=== PATIENT | male | born 1985 | race American Indian/Alaskan Native ===

== ENCOUNTER 2022-02-05 13:04 | Emergency (ER) | payer SELFPAY ==
[2022-02-05 15:00] LABS: Basophils % (Auto) 0.4 % (0.0-1.8); Eosinophils % (Auto) 0.5 % (0.0-4.3); Hemoglobin 14.2 gm/dl (11.8-15.2); Lymphocytes # (Auto) 0.8 K/mm3 (1.2-5.4); Lymphocytes % (Auto) 12.4 % (13.4-35.0); Mean Corpuscular HGB Conc 32 % (32-34); Mean Corpuscular Volume 94 fl (84-94); Monocytes # (Auto) 0.6 K/mm3 (0.0-0.8); Monocytes % (Auto) 9.1 % (0.0-7.3); Platelet Count 241 K/mm3 (140-440); Red Cell Distribution Width 15.3 % (13.2-15.2)
--- NOTE | 2022-02-05 15:07 | Emergency Department Report ---
ED Psych HPI - General Chief Complaint: Psych Stated Complaint: IN PAIN Time Seen by Provider: 02/05/22 14:24 Source: patient Mode of arrival: Ambulatory - History of Present Illness Initial Comments: Patient is 36 years old male with history of schizophrenia. Patient brought to the emergency room via EMS for mental health evaluation. Patient stated that he is hearing voices asking him to hurt himself. Patient stated that he does not have a plan. Patient also saying that he feels like the world is gone and by itself and he might not need to do that. He denied any homicidal ideation. No visual hallucination. - Related Data Previous Rx's Medication Instructions Recorded Last Taken Type Insulin NPH/Regular [Novolin 70/30] 12 unit SUB-Q TID #1 vial 02/06/22 Unknown Rx Syringe-Needle,Insulin,0.5 ml 1 each MC TID #1 box 02/06/22 Unknown Rx [Insulin Syringe/Needle 0.5 ML] Allergies Allergy/AdvReac Type Severity Reaction Status Date / Time No Known Allergies Allergy Verified 02/05/22 16:34 ED Review of Systems ROS: Stated complaint: IN PAIN Other details as noted in HPI Comment: All other systems reviewed and negative Constitutional: denies: chills, fever Respiratory: denies: cough, shortness of breath, SOB with exertion, SOB at rest Cardiovascular: denies: chest pain, palpitations Gastrointestinal: denies: abdominal pain, nausea, vomiting Neurological: denies: headache, weakness, numbness, paresthesias, confusion Psychiatric: depression, auditory hallucinations, suicidal thoughts. denies: visual hallucinations, homicidal thoughts ED Past Medical Hx - Past Medical History Additional medical history: Depression, bipolar - Surgical History Past Surgical History?: No - Social History Smoking Status: Never Smoker - Medications Home Medications: Home Medications Medication Instructions Recorded Confirmed Last Taken Type Insulin NPH/Regular [Novolin 70/30] 12 unit SUB-Q TID #1 vial 02/06/22 Unknown Rx Syringe-Needle,Insulin,0.5 ml 1 each MC TID #1 box 02/06/22 Unknown Rx [Insulin Syringe/Needle 0.5 ML] ED Physical Exam - General Limitations: No Limitations General appearance: alert, in no apparent distress - Head Head exam: Present: atraumatic, normocephalic, normal inspection - Eye Eye exam: Present: normal appearance - ENT ENT exam: Present: normal exam, normal orophraynx, mucous membranes moist - Neck Neck exam: Present: normal inspection, full ROM. Absent: tenderness, meni ngismus - Respiratory Respiratory exam: Present: normal lung sounds bilaterally - Cardiovascular Cardiovascular Exam: Present: regular rate, normal rhythm, normal heart sounds - GI/Abdominal GI/Abdominal exam: Present: soft, normal bowel sounds. Absent: distended, tenderness, guarding, rebound, rigid, organomegaly, mass, bruit, pulsatile mass, hernia - Extremities Exam Extremities exam: Present: normal inspection, full ROM, normal capillary refill. Absent: tenderness, pedal edema, joint swelling, calf tenderness - Back Exam Back exam: Present: normal inspection, full ROM. Absent: CVA tenderness (R), CVA tenderness (L) - Neurological Exam Neurological exam: Present: alert, oriented X3, CN II-XII intact, normal gait, reflexes normal - Psychiatric Psychiatric exam: Present: suicidal ideation. Absent: homicidal ideation - Skin Skin exam: Present: warm, intact, normal color ED Course Vital Signs 02/05/22 02/05/22 02/05/22 13:51 15:02 18:36 Temperature 98.2 F Pulse Rate 79 78 Respiratory 12 15 Rate Blood Pressure 128/68 Blood Pressure 129/77 [Right] O2 Sat by Pulse 98 99 99 Oximetry 02/05/22 02/06/22 02/06/22 19:45 00:15 02:05 Temperature Pulse Rate 77 Respiratory 18 15 15 Rate Blood Pressure Blood Pressure 131/71 [Right] O2 Sat by Pulse 100 Oximetry 02/06/22 02/06/22 02/06/22 06:14 06:15 08:44 Temperature Pulse Rate 80 Respiratory 15 15 18 Rate Blood Pressure Blood Pressure 138/80 [Right] O2 Sat by Pulse 100 Oximetry 02/06/22 18:09 Temperature Pulse Rate 78 Respiratory 18 Rate Blood Pressure Blood Pressure 140/81 [Right] O2 Sat by Pulse 98 Oximetry ED Medical Decision Making - Lab Data Result diagrams: 02/05/22 14:43 02/06/22 21:12 - Medical Decision Making Patient is 36 years old male with history of schizophrenia. Patient brought to the emergency room via EMS for mental health evaluation. Patient stated that he is hearing voices asking him to hurt himself. Patient stated that he does not have a plan. Patient also saying that he feels like the world is gone and by itself and he might not need to do that. He denied any homicidal ideation. No visual hallucination. Labs reviewed and patient found to have a blood glucose of 870. Patient received 20 units of insulin IV and started on 2 L of normal saline. Blood pressure improved to 350. I added another 6 units. I started patient on sliding scale. Critical Care Time: Yes Critical care attestation.: If time is entered above; I have spent that time in minutes in the direct care of this critically ill patient, excluding procedure time. ED Disposition Clinical Impression: Acute hyperglycemia, Suicidal ideation, Diabetes mellitus, new onset DKA (diabetic ketoacidosis) Qualifiers: Diabetes mellitus type: type 1 Diabetes mellitus complication detail: without coma Qualified Code(s): E10.10 - Type 1 diabetes mellitus with ketoacidosis without coma Disposition: 09 ADMITTED INPATIENT Is pt being admited?: No Condition: Stable Instructions: Type 2 Diabetes Mellitus, Self Care, Adult, [id number], Blood Glucose Monitoring, Adult, Preventing Diabetic Ketoacidosis, Diabetic Ketoacidosis (ED), Diabetes Mellitus Type 2 in Adults (ED) Additional Instructions: Professional and Agency Contacts To help Resolve Crises(25/03) [place] Crisis Line: Suicide Prevention Line: Crisis Text Line: Text START to [phone] Emergency: 911 Outpatient COMMUNITY Behavioral Health Resources: [place]: [facility] [address] [place], [place] [address] [facility] [address] [place] [address] [facility] - [address] [place] [address] Saturday thru Saturday - 8am - 5pm [facility] Address: [address], [place] [address] [facility] Address: [address] [place] [address] Saturday thru Saturday- 7am-2pm [facility] Address: [address] [place] [address] Saturday thru Saturday: 8:30AM-5PM In case of an emergency, please contact the following numbers: [place] Crisis and Access Line: Number: Crisis Text Line: (Text START) Number: 790078 Suicide Prevention Line: Number: Emergency Number: 911 SUBSTANCE ABUSE PROGRAMS: [facility]: Location: [place], [place] [employer] [facility] Address: [address] [place] [address] [facility]: Address: [address] [facility] [place] [address] [facility]: Address: [address] [place] [address] [facility] Community: Address: [address] [place] [address] [facility] Address: [address] [place] [address]. Please contact above numbers to attempt placement into free based program. Medicaid Programs: [facility]: Address: [address] [place] [address] [facility]: Address: [address] [place] [address] Prescriptions: Syringe-Needle,Insulin,0.5 ml [Insulin Syringe/Needle 0.5 ML] 1 each MC TID #1 box Insulin NPH/Regular [Novolin 70/30] 12 unit SUB-Q TID #1 vial Referrals: PRIMARY CARE, [Primary Care Provider] - 3-5 Days
[2022-02-05 15:18] LABS: BUN/Creatinine Ratio 9; Blood Urea Nitrogen 8 mg/dL (9-20); Calcium 8.4 mg/dL (8.4-10.2); Hemolysis Index 21
[2022-02-05] MEDS ORDERED: SODIUM CHLORIDE 0.9% 1000 ML 1,000 ML IV ONE ×2 (15:31→17:41)
[2022-02-05] MEDS ORDERED: INSULIN REGULAR, HUMAN 100 UNITS/1 ML IV NR (15:32)
[2022-02-05] MEDS ORDERED: INSULIN REGULAR, HUMAN 100 UNITS/1 ML IV ONE ×2 (18:21→20:26)
[2022-02-05 20:18] LABS: BUN/Creatinine Ratio 10; Blood Urea Nitrogen 8 mg/dL (9-20); Calcium 8.1 mg/dL (8.4-10.2); Hemolysis Index 14
[2022-02-05] MEDS ORDERED: DEXTROSE 50% IN WATER (25GM) 50 ML SYRINGE IV PRN (20:25)
[2022-02-05] MEDS: INSULIN REGULAR, HUMAN 100 UNITS/1 ML SUB-Q SCH (22:43)
[2022-02-06] MEDS ORDERED: SODIUM BICARB 8.4% 50 MEQ/50 ML SYRINGE IV NR ×2 (11:57→20:26)
[2022-02-06] MEDS ORDERED: SODIUM CHLORIDE 0.9% 1000 ML 1,000 ML IV ONE ×4 (11:57→16:13)
[2022-02-06] MEDS: INSULIN REGULAR, HUMAN 100 UNITS/1 ML SUB-Q SCH (11:58)
[2022-02-06] MEDS ORDERED: DEXTROSE 50% IN WATER (25GM) 50 ML SYRINGE IV PRN (12:00)
[2022-02-06 13:00] LABS: Bilirubin,Urine NEG (Negative); Blood,Urine NEG (Negative); Color,Urine Straw (Yellow); Mucus,Urine FEW /HPF; Protein,Urine <15 mg/dL mg/dL (Negative); Urobilinogen,Urine < 2.0 mg/dL (<2.0); WBC,Urine < 1.0 /HPF (0.0-6.0)
[2022-02-06 13:11] LABS: Amphetamine Screen,Urine Negative; Benzodiazepines Screen,Urine Negative; Cocaine Screen,Urine Negative; Methadone Screen,Urine Negative; Opiate Screen,Urine Negative
[2022-02-06 13:25] LABS: Cannabinoid Screen,Urine Positive
--- NOTE | 2022-02-06 15:42 | Emergency Department Report ---
Blank Doc - Documentation Documentation: 36-year-old male in the ED since yesterday awaiting psychiatric evaluation. P gayatri apparently had new onset hyperglycemia with new diagnosis of diabetes and was treated with insulin and IV fluids and medically cleared. Patient has received psychiatric clearance with discontinuation of 1013 from mental health providers. Upon my review patient is initial labs show hyperglycemia with anion gap and urine with ketones suggestive of possible DKA. Patient has received several doses of insulin since yesterday including 6 units prior to my bedside evaluation blood glucose in the 300s. I interviewed patient and he states he is feeling better than yesterday and does endorse recent increased thirst and urinary frequency. Repeat BMP and venous pH ordered to rule out DKA and to reassess anion gap and electrolyte status. Vph shows a significant acidosis. + for DKA. Pt will nee ICU admission for DKA treatment case d/w Dr Luo case d/w Dr Arriaza ICU DKA protocol initiated including insulin drip. Critical care time 35 minutes
[2022-02-06] MEDS ORDERED: INSULIN NPH/REGULAR 70/30 INJ SUB-Q SCH (16:30)
[2022-02-06 16:56] LABS: Blood Urea Nitrogen 7 mg/dL (9-20); Calcium 8.6 mg/dL (8.4-10.2); Hemolysis Index 3
[2022-02-06 16:58] LABS: BUN/Creatinine Ratio 10
[2022-02-06] MEDS ORDERED: INSULIN REGULAR, HUMAN 100 UNITS in SODIUM CHLORIDE 0.9% 99 ML IV SCH (17:00)
[2022-02-06] MEDS ORDERED: POTASSIUM CHLORIDE 10 MEQ 10 MEQ/100 ML BAG IV SCH ×2 (17:00)
[2022-02-06] MEDS ORDERED: D5W/0.45% NACL/KCL 20 MEQ 20 MEQ/1,000 ML BAG IV SCH (17:00)
[2022-02-06] MEDS ORDERED: SODIUM CHLORIDE 0.9% 1000 ML 3,000 ML IV ONE (17:00)
[2022-02-06 17:25] LABS: Blood Urea Nitrogen 7 mg/dL (9-20); Calcium 8.5 mg/dL (8.4-10.2); Hemolysis Index 6
[2022-02-06 17:26] LABS: BUN/Creatinine Ratio 12
[2022-02-06 18:10] VITALS: BP 140/81
--- NOTE | 2022-02-06 18:51 | Consultation ---
History of Present Illness - Reason for Consult Consult date: 02/06/22 Reason for consult: SI - History of Present Psychiatric Illness The patient was seen today. He is calm, and cooperative. He states he came to the hospital because he was urinating a lot. The patient says he found his blood sugar was high. I ask the patient was he still hearing the voices, hes says "no, I'm not hearing voices." The patient says "I think my sugar had me crazy." He then laughs. The patient denies SI/HI or hallucinations of any kind. He says he's starting to feel better, but states "now I'm just hungry." He then laughs. REVIEW OF SYSTEMS Constitutional: Negative for weight loss ENT: Negative for stridor Respiratory: Negative for cough or hemoptysis All other systems reviewed and are negative MENTAL STATUS EXAMINATION General Appearance and Behavior: Age appropriate, wearing appropriate clothes, cooperative, polite with questioning, good eye contact Cooperation: cooperative Psychomotor Behavior: normal Mood: calm Affect and affective range: congruent with stated mood Thought Process: Goal directed Thought Content: Reality oriented Speech: Normal volume, Regular rate and rhythm Suicidal Ideation: Denies Homicidal Ideation: Denies Hallucination: Denies Delusions: None elicited Impulse Control: Limited Insight and Judgment: Limited Memory: Intact Attention:attentive Orientation: Alert and oriented Assessment Hx of schizophrenia Delirium Recommendations: Continue home medications MEDICAL: Per primary team FACILITIES DIRECTOR: Defer to primary DISPOSITION: Per primary team. Acute inpatient psychiatric hospitalization is not recommended at this time. LEGAL STATUS: Voluntary FOLLOW-UP: Will sign off Please contact with any questions and/or concerns. Case staffed with Dr. Conrad Medications and Allergies Allergies Allergy/AdvReac Type Severity Reaction Status Date / Time No Known Allergies Allergy Verified 02/05/22 16:34 Active Meds: Active Medications Dextrose (Dextrose 50% In Water (25gm) 50 Ml Syringe) 50 ml IV Q30MIN PRN; Protocol PRN Reason: Hypoglycemia Sodium Chloride (Nacl 0.9% 1000 Ml) 1,000 mls @ 125 mls/hr IV ONCE ONE Stop: 02/06/22 19:56 Last Admin: 02/06/22 17:52 Dose: Not Given Insulin Human Regular 100 (units/ Sodium Chloride) 100 mls @ 1 mls/hr IV TITR PIPER; Protocol Last Titration: 02/06/22 18:22 Dose: 5 units/hr, 5 mls/hr Potassium Chloride/Dextrose/Sod Cl (D5w/0.45% Nacl/Kcl 20 Meq) 20 meq in 1,000 mls @ 125 mls/hr IV DIRECT PIPER Potassium Chloride (Kcl 10meq/100ml) 10 meq in 100 mls @ 100 mls/hr IV Q1H PIPER Stop: 02/06/22 20:59 Potassium Chloride (Kcl 10meq/100ml) 10 meq in 100 mls @ 100 mls/hr IV Q1H PIPER Stop: 02/06/22 22:59 Sodium Chloride (Nacl 0.9% 1000 Ml) 3,000 mls @ 999 mls/hr IV BOLUS ONE Stop: 02/06/22 20:00 Mental Status Exam - Vital signs Last Vital Signs Temp 98.2 F 02/05/22 13:51 Pulse 78 02/06/22 18:09 Resp 18 02/06/22 18:09 BP 140/81 02/06/22 18:09 Pulse Ox 98 02/06/22 18:09 Results Result Diagrams: 02/05/22 14:43 02/06/22 16:30 Abnormal lab results 02/05/22 02/06/22 02/06/22 Range/Units 19:43 15:32 15:32 VBG pH 7.109 L* (7.320-7.420) Sodium 132 L D 130 L (137-145) mmol/L Chloride (98-107) mmol/L Carbon Dioxide 14 L 18 L (22-30) mmol/L BUN 8 L 7 L (9-20) mg/dL Creatinine 0.7 L (0.8-1.3) mg/dL Glucose 351 H 284 H (75-100) mg/dL Calcium 8.1 L (8.4-10.2) mg/dL 02/06/22 Range/Units 16:30 VBG pH (7.320-7.420) Sodium 132 L (137-145) mmol/L Chloride 96.6 L (98-107) mmol/L Carbon Dioxide 16 L (22-30) mmol/L BUN 7 L (9-20) mg/dL Creatinine 0.6 L (0.8-1.3) mg/dL Glucose 281 H (75-100) mg/dL Calcium (8.4-10.2) mg/dL All other labs normal.
[2022-02-06 19:57] LABS: Blood Urea Nitrogen 6 mg/dL (9-20); Calcium 8.6 mg/dL (8.4-10.2); Hemolysis Index 9
[2022-02-06 20:01] LABS: BUN/Creatinine Ratio 10
--- NOTE | 2022-02-06 20:27 | History and Physical Report ---
History of Present Illness Chief complaint: They told them a blood sugar was high History of present illness: 36 YO male with Obesity, Schizophrenia, Bipolar Disorder, MDD presents ED for evaluation. Patient reports "they told me my blood sugar was high". Patient states that he has experienced polydipsia polyuria and polyphagia over the past several days. Patient transported to [facility] via private vehicle for further care and evaluation of "hearing voices". Patient placed on 1013. Patient seen and evaluated by mental health team. Patient found to not require inpatient psychiatric care and cleared from by psychiatry team. Patient seen and evaluated in the emergency department. All lab and imaging studies reviewed. Patient found to have new onset diabetes mellitus complicated by early DKA. Patient treated with IV fluid resuscitation therapy with normalization of anion gap. Patient medically optimized and back to usual state of health. Patient initially admitted to ICU but subsequently downgraded. Patient denies fever, chills, chest pain, palpitation, productive cough, skin rash, recent contact, known exposure to COVID-19. No prior admission for review. Advance care planning conducted in ED. Past History Past Medical History: other (See HPI\\) Past Surgical History: No surgical history, Other (Reviewed) Social history: single. denies: smoking, alcohol abuse, prescription drug abuse Family history: diabetes, hypertension Medications and Allergies Allergies Allergy/AdvReac Type Severity Reaction Status Date / Time No Known Allergies Allergy Verified 02/05/22 16:34 Home Medications Medication Instructions Recorded Confirmed Last Taken Type Insulin NPH/Regular [Novolin 70/30] 12 unit SUB-Q TID #1 vial 02/06/22 Unknown Rx Syringe-Needle,Insulin,0.5 ml 1 each MC TID #1 box 02/06/22 Unknown Rx [Insulin Syringe/Needle 0.5 ML] Active Meds: Active Medications Dextrose (Dextrose 50% In Water (25gm) 50 Ml Syringe) 50 ml IV Q30MIN PRN; Protocol PRN Reason: Hypoglycemia Insulin Human Regular 100 (units/ Sodium Chloride) 100 mls @ 1 mls/hr IV TITR PIPER; Protocol Last Titration: 02/06/22 18:22 Dose: 5 units/hr, 5 mls/hr Potassium Chloride/Dextrose/Sod Cl (D5w/0.45% Nacl/Kcl 20 Meq) 20 meq in 1,000 mls @ 125 mls/hr IV DIRECT PIPER Potassium Chloride (Kcl 10meq/100ml) 10 meq in 100 mls @ 100 mls/hr IV Q1H PIPER Stop: 02/06/22 20:59 Potassium Chloride (Kcl 10meq/100ml) 10 meq in 100 mls @ 100 mls/hr IV Q1H PIPER Stop: 02/06/22 22:59 Sodium Bicarbonate (Sodium Bicarb 8.4% 50 Meq/50 Ml Syringe) 50 meq IV ONCE ONE Stop: 02/06/22 20:27 Review of Systems Constitutional: no weight loss, no weight gain, no chills, no sweats Ears, nose, mouth and throat: no ear pain, no ear discharge, no tinnitis, no nasal congestion, no nasal discharge, no sinus pressure, no sinus pain Cardiovascular: no chest pain, no orthopnea, no palpitations, no rapid/irregular heart beat, no syncope Respiratory: no cough, no cough with sputum, no hemoptysis, no shortness of breath, no dyspnea on exertion Gastrointestinal: no nausea, no vomiting, no diarrhea, no coffee ground emesis Genitourinary Male: no hematuria, no flank pain, no discharge, no urinary hesitancy, no nocturia, no incontinence Rectal: no pain, no incontinence, no bleeding Musculoskeletal: no neck stiffness, no neck pain, no shooting arm pain, no arm numbness/tingling, no shooting leg pain, no leg numbness/tingling Integumentary: no rash, no pruritis, no redness, no wounds, no jaundice Neurological: no head injury, no paralysis, no weakness, no numbness, no seizures, no tremors Psychiatric: no anxiety, no memory loss, no sleep disturbances Endocrine: polyphagia, excessive thirst, polydipsia, polyuria, high blood sugars, no cold intolerance, no heat intolerance Hematologic/Lymphatic: no easy bruising, no easy bleeding Allergic/Immunologic: no urticaria, no allergic rhinitis, no wheezing Exam - Constitutional Vitals: Temp Pulse Resp BP Pulse Ox 98.2 F 78 18 140/81 98 02/05/22 13:51 02/06/22 18:09 02/06/22 18:09 02/06/22 18:09 02/06/22 18:09 General appearance: Present: mild distress - EENT Eyes: Present: PERRL ENT: hearing intact, clear oral mucosa - Neck Neck: Present: supple, normal ROM - Respiratory Respiratory effort: normal Respiratory: bilateral: CTA - Cardiovascular Heart Sounds: Present: S1 & S2. Absent: rub, click - Extremities Extremities: pulses symmetrical, No edema Peripheral Pulses: within normal limits - Abdominal General gastrointestinal: Present: soft, non-tender, non-distended, normal bowel sounds Male genitourinary: Present: normal - Integumentary Integumentary: Present: clear, warm, dry - Musculoskeletal Musculoskeletal: gait normal, strength equal bilaterally - Psychiatric Psychiatric: appropriate mood/affect, intact judgment & insight - Neurologic Neurologic: CNII-XII intact, moves all extremities Results - Labs CBC & Chem 7: 02/05/22 14:43 02/06/22 19:30 Labs: Abnormal lab results 02/06/22 02/06/22 02/06/22 Range/Units 15:32 15:32 16:30 VBG pH 7.109 L* (7.320-7.420) Sodium 130 L 132 L (137-145) mmol/L Potassium (3.6-5.0) mmol/L Chloride 96.6 L (98-107) mmol/L Carbon Dioxide 18 L 16 L (22-30) mmol/L BUN 7 L 7 L (9-20) mg/dL Creatinine 0.7 L 0.6 L (0.8-1.3) mg/dL Glucose 284 H 281 H (75-100) mg/dL 02/06/22 Range/Units 19:30 VBG pH (7.320-7.420) Sodium 134 L (137-145) mmol/L Potassium 3.5 L (3.6-5.0) mmol/L Chloride (98-107) mmol/L Carbon Dioxide 16 L (22-30) mmol/L BUN 6 L (9-20) mg/dL Creatinine 0.6 L (0.8-1.3) mg/dL Glucose 230 H (75-100) mg/dL Assessment and Plan - Patient Problems (1) DKA (diabetic ketoacidosis) Current Visit: Yes Status: Acute Qualifiers: Diabetes mellitus type: type 1 Diabetes mellitus complication detail: without coma Qualified Code(s): E10.10 - Type 1 diabetes mellitus with ketoacidosis without coma Plan to address problem: DKA protocol: IV fluid resuscitation therapy, insulin drip, monitor anion gap, serial BMP, monitor fluid balance. Patient symptoms resolved rapidly with normalization of anion gap after treatment initiated in the emergency department. Patient subsequently downgraded from ICU care. (2) Hyperosmolar hyperglycemic state (HHS) Current Visit: Yes Status: Acute Plan to address problem: 5 scale insulin therapy, consistent carbohydrate diet, outpatient follow-up with primary care physician with blood glucose log 3 times a day, (3) Obesity (BMI 30.0-34.9) Current Visit: Yes Status: Acute Plan to address problem: Balanced diet, consistent carbohydrate diet, increase physical activity discharge. (4) DVT prophylaxis Current Visit: Yes Status: Acute Plan to address problem: SCDs bilateral extremities while in bed, patient is ambulatory (5) Suicidal ideation Current Visit: Yes Status: Acute Plan to address problem: Patient seen and evaluated by mental health team. Patient cleared for discharge. Outpatient psychiatry follow-up as instructed. (6) Advance care planning Current Visit: Yes Status: Acute Plan to address problem: Disease education data, care plan discussed, diagnoses discussed, prognosis discussed, patient is full code. Patient knowledges understanding agreement with care plan, +30 minutes. (7) Preventative health care Current Visit: Yes Status: Acute Plan to address problem: Patient counseled on balanced diet, increase physical activity discharge, carb ohydrate counting, follow-up with primary care physician with blood glucose log. Patient instructed to follow-up with primary care physician for all age and risk factor appropriate screening test. +30 minutes.
[2022-02-06 22:52] LABS: Blood Urea Nitrogen 8 mg/dL (9-20); Calcium 8.8 mg/dL (8.4-10.2); Hemolysis Index 6
[2022-02-06 22:57] LABS: BUN/Creatinine Ratio 13
== END 2022-02-06 21:30 | disposition admitted as inpatient to this hospital (09) ==
LOC: ED 13:04
DX: E11.65 Type 2 diabetes mellitus with hyperglycemia (principal); R45.851 Suicidal ideations; E11.10 Type 2 diabetes mellitus with ketoacidosis without coma; Z20.822 Contact with and (suspected) exposure to COVID-19
CPT/HCPCS: 36415; 80048; 80307; 81001; 82805; 83735; 84100; 85025; 96365; 96372; 96376; 99284; J7030; U0003; 80320; 96361; 96374; 96375; Q0177; Q9967; G0480; J1815